=== PATIENT | female | born 1995 ===

== ENCOUNTER → 2019-12-01 | Outpatient (CLI) | payer OTHER ==
--- NOTE | 2019-12-01 12:41 | WOMENS IMAGING REPORT ---
EXAM DESCRIPTION: TRANSVAGINAL ULTRASOUND IMAGES COMPLETED DATE/TIME: 12/01/2019 12:02 pm REASON FOR STUDY: R10.32 LEFT LOWER QUADRANT PAIN R10.32 LEFT LOWER QUADRANT PAIN COMPARISON: None. TECHNIQUE: Dynamic and static grayscale images acquired of the pelvis via transvaginal approach and recorded on PACS. Additional selected color Doppler and spectral images recorded. LIMITATIONS: None. FINDINGS: UTERUS: Retroverted uterus. No mass. ENDOMETRIAL STRIPE: An IUD is present. CERVIX: Nabothian cysts are seen. RIGHT OVARY AND DOPPLER: Normal size. No worrisome masses. Normal arterial vascular flow without ev idence for torsion. LEFT OVARY AND DOPPLER: Normal size. 21 mm cyst. No worrisome masses. Normal arterial vascular flow without evidence for torsion. FREE FLUID: Small amount of free fluid. OTHER: No other significant finding. MEASUREMENTS: UTERUS: 7.8 x 4.4 x 4.8 cm. ENDOMETRIAL STRIPE: 3 mm. RIGHT OVARY: 5.1 x 2.7 x 3.8 cm. LEFT OVARY: 4.1 x 3 x 3.6 cm. IMPRESSION: Small ovarian cyst is almost certainly benign. No additional imaging is required for th is. Nabothian cysts are present in the cervix. There is a small amount of free fluid. TECHNICAL DOCUMENTATION: JOB ID: [id number] [employer]- All Rights Reserved Rev-07/10 Reading location - IP/workstation name: [email or web address]
== END ==
LOC: WI 11:28
PROVIDERS: ATTEND Nurse Practitioner Family
DX: N83.202 Unspecified ovarian cyst, left side (principal); N88.8 Other specified noninflammatory disorders of cervix uteri; R10.32 Left lower quadrant pain
CPT/HCPCS: 76830